=== PATIENT | male | born 1985 | race Caucasian/White ===

== ENCOUNTER 2018-01-10 19:23 | Emergency (ER) | payer MEDICAID, OTHER ==
[~2018-01-10] VITALS: Ht 162.6 cm; Wt 94.1 kg
[2018-01-10 19:56] LABS: MEAN CORPUSCULAR HEMOGLOBIN 29.8 pg (27.5-34.5); MEAN CORPUSCULAR HGB CONC 33.5 g/dL (33.2-36.2); MEAN CORPUSCULAR VOLUME 88.9 fL (81-97); MEAN PLATELET VOLUME 8.5 fL (7.4-10.4); PLATELET COUNT 337 x10^3/uL (130-400); RED BLOOD COUNT 5.36 x10^6/uL (4.38-5.82); RED CELL DISTRIBUTION WIDTH 14.5 % (9.4-14.8)
[2018-01-10 20:06] LABS: ALBUMIN 3.8 g/dL (3.4-5.0); ANION GAP 7 mmol/L (5-15); CALCIUM 9.2 mg/dL (8.5-10.1); CHLORIDE 106 mmol/L (98-107)
[2018-01-10 20:12] LABS: ALANINE AMINOTRANSFERASE 51 U/L (12-78); ALKALINE PHOSPHATASE 111 U/L (45-117); BILIRUBIN,TOTAL 0.4 mg/dL (0.2-1.0); CREATININE 1.05 mg/dL (0.7-1.3); TOTAL PROTEIN 8.7 g/dL (6.4-8.2); TROPONIN I < 0.015 ng/mL (0.000-0.045)
[2018-01-10 20:30] LABS: BASOPHILS # (AUTO) 0.02 x10^3/uL (0-0.1); BASOPHILS % (AUTO) 0 % (0-1); EOSINOPHILS % (AUTO) 1 % (1-7); LYMPHOCYTES # (AUTO) 1.59 x10^3/uL (1-3.4); LYMPHOCYTES % (AUTO) 15 % (22-44); MD SCAN; MONOCYTES # (AUTO) 1.47 x10^3/uL (0.2-0.8); MONOCYTES % (AUTO) 13 % (2-9); NEUTROPHILS # (AUTO) 7.76 x10^3/uL (1.8-6.8); NEUTROPHILS % (AUTO) 71 % (42-75)
[2018-01-10] MEDS ORDERED: MAALOX/HYOSCYAMINE/LIDOCAINE 45 ML BTL PO ONE (20:30)
[2018-01-10] MEDS ORDERED: SODIUM CHLORIDE 0.9% 1,000ML IVBOLUS ONE (20:30)
[2018-01-10] MEDS ORDERED: ONDANSETRON 2MG/ML, 2ML IVPush ONE (20:30)
[2018-01-10] MEDS ORDERED: FAMOTIDINE 20 MG/2 ML IVP ONE (20:30)
[2018-01-10] MEDS ORDERED: SODIUM CHLORIDE FLUSH 10ML SYR IVF ONE (20:30)
[2018-01-10] MEDS ORDERED: ONDANSETRON 2MG/ML, 2ML ONE (20:50)
[2018-01-10] MEDS ORDERED: MAALOX/HYOSCYAMINE/LIDOCAINE 45 ML BTL ONE (20:51)
[2018-01-10] MEDS ORDERED: FAMOTIDINE 20 MG/2 ML ONE (20:51)
[2018-01-10 21:40] VITALS: BP 108/64
== END 2018-01-10 21:43 | disposition home or self-care (01) ==
LOC: ED 21:00
DX: K21.9 Gastro-esophageal reflux disease without esophagitis (principal); F15.10 Other stimulant abuse, uncomplicated; F17.200 Nicotine dependence, unspecified, uncomplicated
CPT/HCPCS: 36415; 71045; 76700; 80053; 83690; 84484; 85025; 93005; 96361; 96374; 96375; 99285; J2405; J7030; S0028

== ENCOUNTER 2018-06-14 15:18 | Emergency (ER) | payer MEDICAID ==
[~2018-06-14] VITALS: Ht 162.6 cm; Wt 84.8 kg
[2018-06-14 15:25] VITALS: BP 119/83
[2018-06-14] MEDS ORDERED: LIDOCAINE-MPF 1%, 5ML INFIL ONE (15:30)
[2018-06-14] MEDS ORDERED: BACITRACIN ZINC OINT 500U/GM, 0.9 GM ONE (16:36)
[2018-06-14] MEDS ORDERED: CEPHALEXIN 500 MG CAPSULE ONE (16:37)
[2018-06-14] MEDS ORDERED: CEPHALEXIN 500 MG CAPSULE PO ONE (17:00)
== END 2018-06-14 16:48 | disposition home or self-care (01) ==
LOC: ED 16:42
DX: L03.011 Cellulitis of right finger (principal); K21.9 Gastro-esophageal reflux disease without esophagitis; F90.9 Attention-deficit hyperactivity disorder, unspecified type; F17.210 Nicotine dependence, cigarettes, uncomplicated
CPT/HCPCS: 10060; 99283

== ENCOUNTER 2020-07-20 12:42 | Emergency (ER) | payer MEDICAID ==
[~2020-07-20] VITALS: Ht 162.6 cm; Wt 77.6 kg
[2020-07-20 12:55] VITALS: BP 128/85
--- NOTE | 2020-07-20 13:21 | NUR ---
Pt appears distressed and is tearful, pt stated "I really messed up, I relapsed and used meth and now im getting a divorce after being for 13 years and I won't be able to see my kids for a year". Pt coached through deep breathing exercises and informed that social work will get him resources to go to [facility]. ABRAN BENITO.
--- NOTE | 2020-07-20 14:20 | NUR ---
Pt resting in bed with eyes closed, even and symmetrical chest rise, no further requests at this time, ABRAN, GADIEL
--- NOTE | 2020-07-20 14:21 | NUR ---
Sitter at bedside in view of pt
--- NOTE | 2020-07-20 15:20 | NUR ---
provided with food/ ua collected-sent to lab
[2020-07-20 15:27] LABS: MEAN CORPUSCULAR HEMOGLOBIN 32.8 pg (27.5-34.5); MEAN CORPUSCULAR HGB CONC 34.1 g/dL (33.2-36.2); MEAN PLATELET VOLUME 7.8 fL (7.4-10.4); PLATELET COUNT 163 x10^3/uL (130-400); RED BLOOD COUNT 4.16 x10^6/uL (4.38-5.82); RED CELL DISTRIBUTION WIDTH 14.6 % (9.4-14.8)
[2020-07-20 15:29] LABS: MD YES
[2020-07-20 15:33] LABS: ALBUMIN 2.4 g/dL (3.4-5.0); ANION GAP 5 mmol/L (5-15); CALCIUM 8.1 mg/dL (8.5-10.1); CHLORIDE 107 mmol/L (98-107); CREATININE 0.66 mg/dL (0.7-1.3)
[2020-07-20 15:35] LABS: SALICYLATE LEVEL < 1.7 mg/dL (2.8-20.0)
[2020-07-20 15:46] LABS: AMPHETAMINE SCREEN, URINE Positive (Negative); BARBITURATE SCREEN, URINE Negative (Negative); BENZODIAZEPINE SCREEN, URINE Negative (Negative); CANNABINOID SCREEN, URINE Positive (Negative); COCAINE SCREEN, URINE Negative (Negative); METHADONE SCREEN, URINE Negative (Negative); OPIATE SCREEN, URINE Negative (Negative)
[2020-07-20 16:54] LABS: BAND#(MANUAL) 0.14 x10^3/uL; BANDS%(MANUAL) 4 % (0-7); EOS#(MANUAL) 0.04 x10^3/uL (0.0-0.4); EOS% (MANUAL) 1 % (1-7); LYMPH#(MANUAL) 1.12 x10^3/uL (1-3.4); LYMPHS% (MANUAL) 31 % (22-44); MONOS#(MANUAL) 0.61 x10^3/uL (0.3-2.7); MONOS% (MANUAL) 17 % (2-9); REACTIVE LYMPHS # (MANUAL) 0.07 x10^3/uL (0-0); REACTIVE LYMPHS % (MANUAL) 2 % (0-0); SEG#(MANUAL) 1.62 x10^3/uL (1.8-6.8); SEGS% (MANUAL) 45 % (42-75)
[2020-07-20 16:55] LABS: <PLATELET ESTIMATE> ADEQUATE; <PLT MORPHOLOGY> NORMAL PLT MORPH; <RBC MORPHOLOGY> NORMAL
== END 2020-07-20 16:16 | disposition home or self-care (01) ==
LOC: ED 16:10
DX: F15.10 Other stimulant abuse, uncomplicated (principal); F32.9 Major depressive disorder, single episode, unspecified; K21.9 Gastro-esophageal reflux disease without esophagitis
CPT/HCPCS: 36415; 80048; 80299; 80307; 80320; 80329; 82040; 85025; 99283; G0480

== ENCOUNTER 2020-07-20 18:40 | Emergency (ER) | payer MEDICAID ==
[~2020-07-20] VITALS: Ht 162.6 cm; Wt 78.1 kg
--- NOTE | 2020-07-20 19:22 | NUR ---
PT STATES HE WAS TOLD HE HAS COIVD 30 MIN AGO. PT STATES HE NEEDS TO ISOLATE FOR 15 DAYS BEFORE HE CAN BE ADMITTED TO [facility]. PT STATES HAVING BODYACHES, FATIGUE AND SOB. PT STEADY AMBULAITNG, 99 PERCENT ON RA. STEADY AMBULATING. ERP AT BEDSIDE
--- NOTE | 2020-07-20 20:00 | NUR ---
PT MEDICALLY CLEARED BY , CHARGE SPOKE WITH [facility], PT HAD POS TEST EARLIER TODAY AND ARE SENDING PAPERWORK FOR COVID HOUSING AT THIS TIME
--- NOTE | 2020-07-20 20:04 | NUR ---
MECHANICAL SUPERVISOR: SPOKE WITH DEMETRIUS FROM [facility] WHO DID CONFIRM THAT PT. DID TEST + FOR COVID TODAY. PER DEMETRIUS WE CAN SEND PAPERWORK TO THE [facility] TO GET PT. INTO COVID HOUSING FOR QUARINTINE PERIOD. AWAITING NECESSARY PAPERWORK TO GET THIS PROCESS STARTED.
--- NOTE | 2020-07-20 20:47 | NUR ---
paperwork signed by pt and filled out by this rn. papers faxed to [facility], spoke with yun and was told they will go through papers, set up transport with [facility] and will call back. pt aware, resting in [facility], no needs at this time
--- NOTE | 2020-07-20 21:07 | NUR ---
YISEL FROM [facility] CALLED TO TELL ME PT IS APPROVED FOR HOUSING AND [facility]. WILL CALL BACK WITH ETA
--- NOTE | 2020-07-20 21:43 | NUR ---
keagan eta at 2230 per yun
[2020-07-20 22:42] VITALS: BP 124/68
== END 2020-07-20 23:11 | disposition home or self-care (01) ==
LOC: ED 19:43
DX: U07.1 COVID-19 (principal); B34.9 Viral infection, unspecified; R06.2 Wheezing; R00.0 Tachycardia, unspecified; K21.9 Gastro-esophageal reflux disease without esophagitis
CPT/HCPCS: 71045; 93005; 99283